=== PATIENT | female | born 1985 | race Hispanic/Latino ===

== ENCOUNTER → 2017-09-09 | Outpatient (CLI) | payer BC ==
--- NOTE | 2017-09-09 17:02 | Diagnostic Imaging Report ---
PROCEDURE:X-RAY RIGHT HEEL COMPARISON:None available. INDICATIONS:FOLLOW UP ON RECURRENT RIGHT HEEL PAIN FINDINGS: No acute fracture or dislocation. No periosteal reaction, erosion, or abnormal soft tissue calcification. Soft tissues are unremarkable. CONCLUSION: No acute fracture or dislocation of the right calcaneus. Dictated by: Maikel Boston M.D. on 09/09/2017 at 17:06 Electronically approved by: Maikel Boston M.D. on 09/09/2017 at 17:06
== END ==
LOC: RAD 16:17
PROVIDERS: ATTEND Family Medicine
DX: M79.671 Pain in right foot (principal)